=== PATIENT | male | born 1985 | race Caucasian/White ===

== ENCOUNTER 2025-04-16 19:28 | Outpatient (BNV) | payer OTHER, SELFPAY | END 2025-04-20 13:50 | PROVIDERS: Admitting Provider Psychiatry & Neurology Psychiatry; Visit Provider Radiology Diagnostic Radiology | DX: M79.89 Other specified soft tissue disorders (principal) | CPT/HCPCS: 73620 ==

== ENCOUNTER 2025-04-16 19:28 | Inpatient (IN) | payer OTHER, SELFPAY ==
--- NOTE | ~2025-04-16 | XR_ITS ---
CLINICAL HISTORY: trauma to left foot 3 views left foot Comparison: None. Findings: No fractures or dislocations. No joint effusion. No significant arthritic change. No radiopaque foreign body. Impression: Soft tissue swelling with no acute skeletal abnormality. This document has been electronically signed by: Arben Molina MD on 04/20/2025 15:00:14
[2025-04-16 20:06] VITALS: BP 122/65; PULSE 70; RESP 18; TEMP 36.4; O2SAT 98
--- NOTE | 2025-04-16 23:34 | PC.ADMIT ---
Edd is a 39 year old male who was admitted to [facility] from [facility] around 194. Legal status is a CV signed with Psychiatric provider. He was admitted for unspecified Bipolar, SI, Poly-substance abuse, Seizure disorder. Pt arrived on the unit via EMT staff on a stretcher. He seemed anxious and was asking if he can get to keep his watch and his phone during the admission process. His skin and safety check completed, unremarkable. Per [facility] medical records. His tox screen was positive for buprenorphine, fentanyl, cocaine, and amphetamines (he is prescribed Suboxone). Patient presented himself to a fire department on 04/13/25 and expressed suicidal ideation. He was transferred to ED by EMS. Per medical records, he sustained a seizure while on the stretcher and sustained a fall from the stretcher while at the ED. No injuries, and he did not hit head. Edd has a hx of Alcohol use, Benzodiazepine abuse, Crack cocaine use, opioid use disorder. He smokes 1 PPD cigarettes- declines NRT, he also has GERD. He looked anxious, unsure of his surroundings. He is on 15 min safety checks and has been comfortable after receiving his bedtime meds. Staff did not witness any socialization with peers.
[2025-04-16 23:57] VITALS: BMI 33.6
[2025-04-17 08:06] VITALS: BP 100/60; PULSE 77; TEMP 36.4; O2SAT 94
[2025-04-17 08:20] LABS: Hemoglobin A1C 136.4012 umol/L; Total Hemoglobin (HGBA1C) 3318.3658 umol/L
--- NOTE | 2025-04-17 08:29 | HO.PM.IMCN ---
History of Present Illness Data of Consult Service Date: 04/17/25 Primary Care Provider: Unknown Physician HPI Reason for consult: Medical consult 39-year-old male with a past medical history of alcohol use, polysubstance use on Suboxone, COPD, hypertension, hyperlipidemia, GERD, history of T4-T5 fracture with resulting neuropathy, bipolar disorder presented to [facility] by EMS for suicidal ideation. In the ED patient had a witnessed seizure and fell off the stretcher. His CT head and CT spine imaging without evidence of any abnormalities. Chest x-ray low concern for pneumonia. Lab work reviewed, no electrolyte imbalances noted, hemoglobin A1c 5.9. CBC pending. Tox screen positive for buprenorphine, fentanyl, cocaine and amphetamines. On exam he has no medical concerns. Patient reports he had seizures in the past related to withdrawal at age 16. He has a documented diagnosis of seizure disorder, , reports seizures related to benzo withdrawal. Review of Systems Review of Systems: Denies any shortness of breath, chest pain, palpitations, dizziness, lightheadedness, headaches, dysuria, abdominal pain or discomfort, nausea, vomiting or diarrhea. Denies chills, body aches, muscle aches, fatigue or weight loss. PMFSH Social History Household Members: None Housing: Homeless Do you presently have visiting nurse or other home services: No Patient Tobacco Use Status: Current everyday Tobacco user Tobacco use type: Cigarette Cigarette Packs Per Day: 1 Cigarettes Per Day: 20.0 Years Smoked: 20 Smoked in Last 30 Days: Yes e-Cigarette/Vaping Use: Currently Using Frequency of e-Cigarette/Vaping Use: Daily Patient Interested in Nicotine Replacement: Yes Patient Given Instructions on How to Stop Smoking: Yes Date Education Initiated: 04/16/25 Second Hand Smoke Exposure: No Currently Displaying Signs/Symptoms of Drug Intoxication Withdrawal: No Have you been hit, kicked, punched, or otherwise hurt by someone within the past year? If so, by whom?: No Do you feel safe in your current relationship?: No Current Relationship Is there a partner from a previous relationship who is making you feel unsafe now?: No Are you made to feel afraid or neglected: No Advance Directives: No Advance Directives Information Provided: No Do you have thoughts of harming others: None Do you have a plan to hurt others: No Plan Recently lost weight without trying: No How much weight loss: Not applicable Eating poorly because of decreased appetite: No Nutrition screen score: 0 Nutrition Risks: No Nutritional Risk Poor oral hygiene: No Meds Allergies Allergy/AdvReac Type Severity Reaction Status Date / Time amoxicillin Allergy Rash Verified 04/16/25 20:05 cefaclor Allergy Rash Verified 04/16/25 20:05 Penicillins Allergy Rash Verified 04/16/25 20:05 Active Medications: Current Medications Acetaminophen (Acetaminophen 325 Mg Tablet) 650 mg PO Q6H PRN PRN Reason: Headache/Pain, Scale 1-10 Last Admin: 04/17/25 08:06 Dose: 650 mg Al Hydroxide/Mg Hydroxide (Magnesium Hydrox/Alum Hydrox 30 Ml Oral.Susp) 30 ml PO Q6H PRN PRN Reason: Heartburn/Nausea Buprenorphine/Naloxone (Buprenorphine/Naloxone 8/2 Mg Film) 1 film SUBLINGUAL BID [facility] Last Admin: 04/17/25 08:05 Dose: 1 film Clonazepam (Clonazepam 1 Mg Tablet) 1 mg PO BID PRN PRN Reason: Anxiety Last Admin: 04/17/25 08:11 Dose: 1 mg Clonidine HCl (Clonidine Hcl 0.2 Mg Tablet) 0.2 mg PO BID [facility]; Protocol Last Admin: 04/17/25 08:06 Dose: 0.2 mg Duloxetine HCl (Duloxetine Hcl 60 Mg Capsule.) 60 mg PO DAILY [facility] Last Admin: 04/17/25 08:07 Dose: 60 mg Gabapentin (Gabapentin 400 Mg Capsule) 800 mg PO TID [facility] Last Admin: 04/17/25 08:06 Dose: 800 mg Hydroxyzine HCl (Hydroxyzine Hcl 25 Mg Tablet) 25 mg PO Q6H PRN PRN Reason: mild anxiety Magnesium Hydroxide (Milk Of Magnesia 30 Ml Oral.Susp) 30 ml PO DAILY PRN PRN Reason: Constipation Nicotine (Nicotine 21 Mg Patch.Td24) 21 mg TRANSDERMA DAILY PRN PRN Reason: nicotine craving Nicotine Polacrilex (Nicotine Polacrilex 2 Mg Gum) 2 mg BUCCAL Q2H PRN PRN Reason: Nicotine Cravings Olanzapine (Olanzapine 5 Mg Tablet) 5 mg PO BID PRN PRN Reason: agitation Omeprazole (Omeprazole 40 Mg Capsule.Dr) 40 mg PO DAILY@0630 [facility] Last Admin: 04/17/25 06:24 Dose: 40 mg Prazosin HCl (Prazosin Hcl 1 Mg Capsule) 2 mg PO BEDTIME [facility]; Protocol Last Admin: 04/16/25 21:50 Dose: 2 mg Trazodone HCl (Trazodone Hcl 50 Mg Tablet) 50 mg PO BEDTIME MRX1 PRN PRN Reason: Insomnia Trazodone HCl (Trazodone Hcl 50 Mg Tablet) 150 mg PO BEDTIME PRN PRN Reason: Insomnia Last Admin: 04/16/25 21:54 Dose: 150 mg Home Medications ?Medication ?Instructions ?Recorded ?Confirmed ?Last Taken ?Type buprenorphine 8 mg-naloxone 2 mg 1 film sublingual BID 04/16/25 04/16/25 Unknown History sublingual film (Suboxone) clonazepam 1 mg tablet 1 mg PO BID PRN anxiety 04/16/25 04/16/25 Unknown History clonidine HCl 0.2 mg tablet 0.2 mg PO BID 04/16/25 04/16/25 Unknown History duloxetine 30 mg capsule,delayed 60 mg PO DAILY 04/16/25 04/16/25 Unknown History release duloxetine 30 mg capsule,delayed 60 mg PO DAILY 04/16/25 04/16/25 Unknown History release gabapentin 800 mg tablet 800 mg PO TID 04/16/25 04/16/25 Unknown History nicotine (polacrilex) 2 mg gum 2 mg PO BID 04/16/25 04/16/25 Unknown History omeprazole 40 mg capsule,delayed 40 mg PO DAILY 04/16/25 04/16/25 Unknown History release prazosin 2 mg capsule 2 mg PO BEDTIME 04/16/25 04/16/25 Unknown History trazodone 150 mg tablet 150 mg PO BEDTIME PRN insomnia 04/16/25 04/16/25 Unknown History Physical Exam Vital Signs and Narrative: Vital Signs: Last Vital Signs Temp 97.5 F 04/17/25 08:06 Pulse 77 04/17/25 08:06 Resp 18 04/16/25 20:06 BP 100/60 04/17/25 08:06 Pulse Ox 94 04/17/25 08:06 O2 Del Method Room Air 04/17/25 08:06 BMI result Body Mass Index 33.6 CONST: Alert and oriented, in NAD. Well nourished HEENT: Normocephalic, atraumatic, MMM, Eyes clear, Neck supple RESP: Lungs clear, RRR even and regular HEART:,RRR, S1, S2. No edema GI:Abdomen Soft NT, ND. + BS times four :Deferred SKIN: Warm dry and intact, no visible lesions or rashes NEURO:CN II-XII Intact bilaterally, Sensation intact. Speech clear PSYCH: Quiet affect, answers questions Results Labs 04/17/25 07:49 04/17/25 07:49 Labs: Laboratory Results - last 24 hr 04/17/25 07:49 Estimat Average Glucose 123 Hemoglobin A1c % 5.9 Assessment and Plan (1) HTN (hypertension): Status: Acute Plan 39-year-old male with a past medical history listed below presents to [facility] after he presented to fire department expressing suicidal ideation. He is admitted to inpatient level of care for further treatment. Bipolar disorder/polysubstance use/alcohol use/suicidal ideations Treatment per psychiatric team Question seizure disorder Patient has a reported history of seizure at age 16 We will defer to psych team regarding need for EEG. COPD Not in exacerbation Albuterol as needed Hypertension/hyperlipidemia Continue clonidine 0.2 mg b.i.d. and atorvastatin Bp is stable GERD Continue omeprazole b.i.d. T4-T5 fracture with resulting neuropathy On gabapentin t.i.d. Thank you for allowing me to participate in the care of this patient. Will follow as needed, please notify medical provider with any changes in condition or concerns.
[2025-04-17 08:33] LABS: Alanine Aminotransferase 36 U/L (0-40); Albumin Level 4.4 g/dL (3.5-5.0); Alkaline Phosphatase 84 U/L (39-117); Anion Gap 11 (12-20); Aspartate Amino Transferase 33 U/L (5-37); Blood Urea Nitrogen 11 mg/dL (9-16); Calcium 9.6 mg/dL (8.4-10.2); Carbon Dioxide 29 mmol/L (22-29); Chloride 105 mmol/L (96-108); Cholesterol 249 mg/dL (<200); Creatinine Clr Calc Pharmacy 140.4; Estimated Glomerular Filt Rate > 60; HDL Cholesterol 49 mg/dL (>40); Potassium 3.7 mmol/L (3.3-5.1); Sodium 141 mmol/L (135-145); Total Protein 8.2 g/dL (6.5-8.0); Triglycerides 151 mg/dL (<150)
[2025-04-17 08:48] LABS: Free T4 (Free Thyroxine) 1.13 ng/dL (0.71-1.85); MANUAL DIFF FLAG NO; Thyroid Stimulating Hormone 0.82 uIU/mL (0.32-4.0)
[2025-04-17 08:53] LABS: Hematocrit 41.5 % (42.0-52.0); Hemoglobin 13.0 g/dl (14.0-18.0); Imm Gran Abs Auto 0.01 X10*3/uL (0.00-0.03); Imm Gran Pct Auto 0.2 % (0.0-0.4); Lymphocytes Absolute Auto 2.7 X10*3/uL (1.2-4.9); Mean Corpuscular HGB Conc 31.3 g/dl (31.0-36.0); Mean Corpuscular Hemoglobin 25.2 pg (27.0-33.0); Mean Corpuscular Volume 80.4 fL (80.0-98.0); NRBC Abs Auto 0.000 X10*3/uL (0.0-0.012); NRBC Pct Auto 0.0 /100WBC (0.0-0.2); Platelet Count 276 X10*3/uL (160-400); Red Blood Count 5.16 X10*6/uL (4.60-5.80); White Blood Count 6.0 X10*3/uL (4.8-10.8)
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
[2025-04-17 20:07] VITALS: BP 123/69
[2025-04-17 20:08] VITALS: BP 123/69
[2025-04-17 20:33] VITALS: BP 123/69; PULSE 109; RESP 16; TEMP 36.7; O2SAT 95
[2025-04-18 08:00] VITALS: BP 137/93; PULSE 73; RESP 15; TEMP 36.4; O2SAT 99
[2025-04-18 08:38] VITALS: BP 137/93
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
[2025-04-18] MEDS: guanFACINE HCl ER 1 MG TAB.ER.24H PO (13:17)
[2025-04-18 19:52] VITALS: BP 124/57
[2025-04-18 20:00] VITALS: BP 124/57; PULSE 65; RESP 18; TEMP 36.4; O2SAT 96
[2025-04-18 21:15] VITALS: BP 124/57
[2025-04-19 08:00] VITALS: BP 105/73; PULSE 105; RESP 18; TEMP 36.4; O2SAT 98
[2025-04-19] MEDS: guanFACINE HCl ER 1 MG TAB.ER.24H PO (08:51)
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
[2025-04-19 20:00] VITALS: BP 131/81; PULSE 75; RESP 18; TEMP 36.4; O2SAT 96
[2025-04-19 21:10] VITALS: BP 144/89
[2025-04-20 07:52] VITALS: BP 137/82; PULSE 79; RESP 17; TEMP 36.4; O2SAT 95
[2025-04-20 08:18] VITALS: BP 137/82
[2025-04-20] MEDS: guanFACINE HCl ER 2 MG TAB.ER.24H PO (08:18)
[2025-04-20] MEDS: Lidocaine 4 % Patch ADH..PATCH 1 PATCH TRANSDERMA (14:18)
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
[2025-04-20 20:00] VITALS: BP 146/74; PULSE 94; RESP 20; TEMP 36.6; O2SAT 99
[2025-04-20 20:18] VITALS: BP 146/84
[2025-04-20 20:28] VITALS: BP 146/84
[2025-04-20] MEDS: Lidocaine HCl Viscous 2 % 15 ML SOLUTION MUCOUS MEM (20:41)
[2025-04-21] MEDS: Lidocaine HCl Viscous 2 % 15 ML SOLUTION MUCOUS MEM (06:01)
[2025-04-21 07:52] VITALS: BP 108/59; PULSE 71; TEMP 2.3; TEMP 36.2; O2SAT 97
[2025-04-21] MEDS: Lidocaine 4 % Patch ADH..PATCH 1 PATCH TRANSDERMA (08:22)
[2025-04-21] MEDS: guanFACINE HCl ER 2 MG TAB.ER.24H PO (08:24)
[2025-04-21] MEDS: guanFACINE HCl ER 1 MG TAB.ER.24H PO (10:49)
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
[2025-04-21 20:00] VITALS: BP 107/62; PULSE 100; RESP 16; TEMP 36.4; O2SAT 96
[2025-04-22 08:00] VITALS: BP 122/77; PULSE 78; RESP 16; TEMP 36.8; O2SAT 92
[2025-04-22] MEDS: guanFACINE HCl ER 1 MG TAB.ER.24H 3 MG PO (09:17)
[2025-04-22 09:18] VITALS: BP 122/77
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
[2025-04-22] MEDS: Lidocaine 4 % Patch ADH..PATCH 1 PATCH TRANSDERMA (12:00)
[2025-04-22 21:13] VITALS: BP 150/68
[2025-04-22 21:16] VITALS: BP 150/68
[2025-04-22 21:17] VITALS: BP 150/68
[2025-04-23 08:00] VITALS: BP 127/80; PULSE 86; RESP 18; TEMP 37.1; O2SAT 95
[2025-04-23 08:15] VITALS: BP 127/80
[2025-04-23] MEDS: guanFACINE HCl ER 1 MG TAB.ER.24H 3 MG PO (08:15)
[2025-04-23] MEDS: Lidocaine 4 % Patch ADH..PATCH 1 PATCH TRANSDERMA (08:18)
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
[2025-04-23 19:36] VITALS: BP 102/57; PULSE 75; RESP 16; TEMP 36.2; O2SAT 96
[2025-04-23 20:35] VITALS: BP 102/57
[2025-04-23 20:36] VITALS: BP 102/57
[2025-04-24] MEDS: Magnesium Hydrox/Alum Hydrox 30 ML ORAL.SUSP PO (00:14)
[2025-04-24 07:00] VITALS: BMI 36.3
[2025-04-24 08:00] VITALS: BP 130/80; PULSE 95; RESP 16; TEMP 36.9; O2SAT 94
[2025-04-24] MEDS: Lidocaine 4 % Patch ADH..PATCH 1 PATCH TRANSDERMA (08:47)
[2025-04-24] MEDS: guanFACINE HCl ER 1 MG TAB.ER.24H 3 MG PO (08:48)
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
[2025-04-24 20:00] VITALS: BP 104/56; PULSE 82; RESP 16; TEMP 37.3
[2025-04-24 20:16] VITALS: BP 128/72
[2025-04-25 08:00] VITALS: BP 110/65; PULSE 84; RESP 16; TEMP 36.9; O2SAT 98
[2025-04-25] MEDS: guanFACINE HCl ER 1 MG TAB.ER.24H 3 MG PO (08:25)
[2025-04-25 08:26] VITALS: BP 110/74
[2025-04-25] MEDS: Lidocaine 4 % Patch ADH..PATCH 1 PATCH TRANSDERMA (08:28)
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
[2025-04-25 20:00] VITALS: BP 104/68; PULSE 84; RESP 18; TEMP 36.4; O2SAT 94
[2025-04-26 08:13] VITALS: BP 127/66; PULSE 81; TEMP 36.6; O2SAT 95
[2025-04-26] MEDS: Lidocaine 4 % Patch ADH..PATCH 1 PATCH TRANSDERMA (09:10)
[2025-04-26] MEDS: guanFACINE HCl ER 1 MG TAB.ER.24H 3 MG PO (09:11)
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
[2025-04-26 20:32] VITALS: BP 115/77; PULSE 82; RESP 16; TEMP 36.5; O2SAT 95
[2025-04-26] MEDS: Lidocaine HCl Viscous 2 % 15 ML SOLUTION MUCOUS MEM (20:43)
[2025-04-26 20:45] VITALS: BP 115/77
[2025-04-27 07:30] VITALS: BP 113/57; PULSE 96; TEMP 36.3; O2SAT 93
[2025-04-27] MEDS: guanFACINE HCl ER 1 MG TAB.ER.24H 3 MG PO (07:56)
[2025-04-27] MEDS: Lidocaine 4 % Patch ADH..PATCH 1 PATCH TRANSDERMA (07:56)
[2025-04-27 07:57] VITALS: BP 124/70
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
[2025-04-27 19:52] VITALS: BP 113/57; PULSE 88; RESP 15; TEMP 36.7; O2SAT 93
[2025-04-28 08:00] VITALS: BP 113/72; PULSE 81; RESP 16; TEMP 2.7; TEMP 36.8; O2SAT 94
[2025-04-28] MEDS: guanFACINE HCl ER 1 MG TAB.ER.24H 3 MG PO (08:24)
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
[2025-04-28 20:34] VITALS: BP 112/53
[2025-04-28 20:35] VITALS: BP 112/53
[2025-04-28 20:59] VITALS: BP 112/53; PULSE 76; RESP 18; TEMP 37.2; O2SAT 98
[2025-04-29 08:00] VITALS: BP 130/74; PULSE 89; RESP 16; TEMP 36.9; O2SAT 94
[2025-04-29] MEDS: guanFACINE HCl ER 1 MG TAB.ER.24H 3 MG PO (09:14)
[2025-04-29] MEDS: Lidocaine 4 % Patch ADH..PATCH 1 PATCH TRANSDERMA (09:18)
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
[2025-04-29] MEDS: Naloxone HCl Nasal TAKE HOME 4 MG SPRAY 8 MG NOSTRILALT (11:10)
== END 2025-04-29 12:20 | disposition home or self-care (01) | DRG 751 ==
PROVIDERS: Nurse Practitioner Family; Nurse Practitioner Psychiatric/Mental Health; Admitting Provider Psychiatry & Neurology Psychiatry; Visit Provider Psychiatry & Neurology Psychiatry
DX: F33.2 Major depressive disorder, recurrent severe without psychotic features (principal); E78.5 Hyperlipidemia, unspecified; F17.210 Nicotine dependence, cigarettes, uncomplicated; F11.20 Opioid dependence, uncomplicated; F19.90 Other psychoactive substance use, unspecified, uncomplicated; T42.4X6A Underdosing of benzodiazepines, initial encounter; M54.50 Low back pain, unspecified; M79.672 Pain in left foot; Z71.6 Tobacco abuse counseling; I10 Essential (primary) hypertension; F43.10 Post-traumatic stress disorder, unspecified; J44.9 Chronic obstructive pulmonary disease, unspecified; K21.9 Gastro-esophageal reflux disease without esophagitis; Z59.02 Unsheltered homelessness; Z79.899 Other long term (current) drug therapy
CPT/HCPCS: 36415; 73620; 80053; 80061; 83036; 84439; 84443; 85025

== ENCOUNTER → 2025-04-16 19:28 | Outpatient (BNV) | payer OTHER, SELFPAY | PROVIDERS: Admitting Provider Psychiatry & Neurology Psychiatry; Visit Provider Psychiatry & Neurology Psychiatry | DX: F33.2 Major depressive disorder, recurrent severe without psychotic features (principal); F43.11 Post-traumatic stress disorder, acute; R45.851 Suicidal ideations; F19.90 Other psychoactive substance use, unspecified, uncomplicated; M54.50 Low back pain, unspecified; M79.672 Pain in left foot; Z59.00 Homelessness unspecified | CPT/HCPCS: 90792; 99232 ==

== ENCOUNTER → 2025-04-16 19:28 | Outpatient (BNV) | payer OTHER, SELFPAY | PROVIDERS: Admitting Provider Psychiatry & Neurology Psychiatry; Visit Provider Nurse Practitioner Family | DX: I10 Essential (primary) hypertension (principal) | CPT/HCPCS: 99221 ==